=== PATIENT | female | born 1955 | race Caucasian/White ===

== ENCOUNTER 2017-12-01 14:34 | Observation (INO) ==
--- NOTE | 2017-12-01 14:42 | Emergency Department Note ---
Disposition Clinical Impression: COPD exacerbation, Acute renal insufficiency, Hypokalemia Disposition: Admitted As Inpatient Condition: Fair Time of Disposition: 21:38 General Adult HPI - General Chief complaint: ED Shortness of Breath/Dyspnea Stated complaint: FRANCESCO, congestion,cough Time Seen by Provider: 12/01/17 14:40 Source: patient Limitations: no limitations Nursing Notes Reviewed: Yes Vital Signs Reviewed: Yes - History of Present Illness HPI Narrative: 62-year-old female presents emergency Department with concern for shortness of breath, cough, congestion, fever. Patient states that she was recently seen and given azithromycin. States that things do not get better. Was diagnosed with pneumonia clinically yesterday. Started on doxycycline. Patient coming because she is not getting any better. 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 Reports long history of smoking. Patient does report having some left-sided pleuritic type chest pain. Pain Scale: 0 - Related Data Home Medications Medication Instructions Recorded Confirmed Acetaminophen with Codeine 1 tab PO Q8H PRN 12/01/17 12/01/17 [Acetaminophen-Cod #3 Tablet] Acetylcysteine 600 mg PO BIDWM 12/01/17 12/01/17 [A-Zhizan-c-Cysteine] Amantadine [Symmetrel] 200 mg PO HS 12/01/17 12/01/17 Aspirin Enteric Coated [Aspirin EC] 81 mg PO DAILY 12/01/17 12/01/17 Atorvastatin [Lipitor] 40 mg PO HS 12/01/17 12/01/17 Cholecalciferol (D-3) [Vitamin D] 1,000 unit PO DAILY 12/01/17 12/01/17 DULoxetine [Cymbalta] 30 mg PO DAILY 12/01/17 12/01/17 Doxycycline Hyclate [Doxycycline 100 mg PO BID 12/01/17 12/01/17 Hyclate] Galantamine HBr [Razadyne ER] 8 mg PO DAILY 12/01/17 12/01/17 Melatonin [Melatin] 3 mg PO HS 12/01/17 12/01/17 Triamterene/HCTZ 37.5/25mg 1 tab PO DAILY 12/01/17 12/01/17 [Dyazide] Allergies Allergy/AdvReac Type Severity Reaction Status Date / Time No Known Allergies Allergy Verified 12/01/17 16:21 All systems ED: reviewed and negative except as stated. Review of Systems: As Per HPI Constitutional: Reports: fever Cardiovascular: Reports: chest pain Respiratory: Reports: cough, dyspnea, sputum production. Denies: wheezes, hemoptysis Gastrointestinal: Denies: abdominal pain, nausea, vomiting Genitourinary: Denies: urgency, dysuria, frequency Musculoskeletal: Denies: back pain Past Medical History - Past Medical History Medical history: Reports: other - Social History Smoking Status: Current every day smoker Smokeless Tobacco Status: No Alcohol use: Reports: none Drug use: Reports: none Physical Exam - General Limitations: no limitations General appearance: alert - Head Head exam: normocephalic - Eye Eye exam: Present: EOMI - ENT ENT exam: normal exam, normal oropharynx, mucous membranes moist - Neck Neck exam: Present: trachea midline - Chest Chest inspection: Present: normal inspection, symmetric chest wall rise - Respiratory Respiratory exam: Present: other (Appears uncomfortable when taking breaths. Coarse lung sounds throughout.) - Cardiovascular Cardiovascular exam: Present: regular rate, normal rhythm, normal heart sounds - Abdominal Exam Abdominal exam: Present: soft, Non-Tender. Absent: distention, guarding, rebound, rigidity - Extremities Exam Extremities exam: Present: normal capillary refill - Neurological Exam Neurological exam: Present: alert, oriented X3 - Psychiatric Psychiatric exam: Present: normal affect, normal mood - Skin Skin exam: Present: warm, dry, intact, normal color Course Vital Signs Temperature 97.8 F 12/01/17 14:36 Pulse Rate 97 12/01/17 14:36 Respiratory Rate 22 12/01/17 14:36 Blood Pressure 155/97 12/01/17 14:36 O2 Sat by Pulse Oximetry 98 12/01/17 14:36 Temperature 98.6 F 12/01/17 19:40 Pulse Rate 85 12/01/17 19:40 Respiratory Rate 20 12/01/17 19:54 Blood Pressure 122/75 12/01/17 19:40 O2 Sat by Pulse Oximetry 99 12/01/17 19:54 Oxygen Delivery Oxygen Delivery Room Air Medical Decision Making - MDM Narrative Medical decision making narrative: 62-year-old female presents emergency department with concern for shortness of breath, cough, congestion, fever, and the setting of extensive smoking history. Patient is also having pleuritic chest pain. Patient currently hemodynamically stable, but does appear to be uncomfortable physical exam. We will obtain chest x-ray, EKG, troponin, BNP, BMP, CBC, d-dimer chest x-ray, give 125 Solu-Medrol IV, 1 L normal saline, 3 DuoNeb's. Patient has leukocytosis at 12.6. This kid be due to stress demargination as patient has been on steroids. EKG did not reveal any ischemic ST changes. Troponin is negative. D-dimer is within normal limits. 3 DuoNeb's help the patient. She stated that she was aerating better. Patient had a potassium of 2.6. Patient also has mild acute renal insufficiency with a creatinine of 1.29. Only 40 mEq was provided at this time. Magnesium was pending at time of admission. Patient has failed outpatient management as her symptoms that began worse. I think she needs to being in a different environment for the short-term to help alleviate her symptoms. Patient agrees to plan. Hemodynamically stable and not in any acute distress at time of admission to the hospitalist. Did not prescribe any antibiotics at this time as patient has no signs of pneumonia on chest x-ray. She is currently taking doxycycline by mouth. Chest X-Ray 12/01/17 14:52 IMPRESSION: Normal appearing chest with old granulomatous disease. No acute abnormality. D/ / Edgar Whitaker MD / Edgar Whitaker MD Interpreting Provider: Edgar Whitaker MD Vital Signs Temperature 97.8 F 12/01/17 14:36 Pulse Rate 97 12/01/17 14:36 Respiratory Rate 22 12/01/17 14:36 Blood Pressure 155/97 12/01/17 14:36 O2 Sat by Pulse Oximetry 98 12/01/17 14:36 Temperature 98.6 F 12/01/17 19:40 Pulse Rate 85 12/01/17 19:40 Respiratory Rate 20 12/01/17 19:54 Blood Pressure 122/75 12/01/17 19:40 O2 Sat by Pulse Oximetry 99 12/01/17 19:54 Oxygen Delivery Oxygen Delivery Room Air - Lab Data Result diagrams: 12/01/17 14:59 12/01/17 14:59 Lab Results 12/01/17 12/01/17 12/01/17 Range/Units 14:59 14:59 14:59 WBC 12.5 H (4.3-11.1) K/mcL RBC 5.42 H (3.82-4.97) M/mcL Hgb 15.7 H (11.5-15.4) g/dL Hct 46.1 H (35.3-44.9) % MCV 85.1 (83.0-100.0) fL MCH 29.0 (28.0-33.3) pg MCHC 34.1 (31.6-35.5) g/dL RDW 13.3 (11.5-14.5) % Plt Count 323 (140-400) K/mcL MPV 9.6 (9.4-12.4) fL Immature Gran % 1.4 (0-4) % Seg Neutrophils % 61.6 % Lymphocytes % 30.4 % Monocytes % 4.9 % Eosinophils % 1.4 % Basophils % 0.3 % Neutrophils # 7.7 (1.6-8.9) K/mcL Lymphocytes # 3.8 (0.6-4.6) K/mcL Monocytes # 0.6 (0.0-1.3) K/mcL Eosinophils # 0.2 (0.0-0.6) K/mcL Basophils # 0.0 (0.0-0.2) K/mcL D-Dimer < 215 (0-500) ng/mLFEU Sodium 137 (136-145) mEq/L Potassium 2.6 L (3.5-5.1) mEq/L Chloride 102 (98-107) mEq/L Carbon Dioxide 26 (23-29) mEq/L BUN 23 (8-23) mg/dL Creatinine 1.29 H (0.60-1.20) mg/dL Est GFR ( Amer) 51 L (> 60) Est GFR (Non-Af Amer) 42 L (> 60) BUN/Creatinine Ratio 18 (6-26) Glucose 157 H (70-105) mg/dL Calculated Osmolality 291 (280-300) Calcium 9.4 (8.6-10.3) mg/dL Magnesium 1.7 (1.6-2.6) mg/dL Troponin I < 0.03 (< 0.04) ng/mL B-Natriuretic Peptide (Less than 100) pg/mL 12/01/17 Range/Units 14:59 WBC (4.3-11.1) K/mcL RBC (3.82-4.97) M/mcL Hgb (11.5-15.4) g/dL Hct (35.3-44.9) % MCV (83.0-100.0) fL MCH (28.0-33.3) pg MCHC (31.6-35.5) g/dL RDW (11.5-14.5) % Plt Count (140-400) K/mcL MPV (9.4-12.4) fL Immature Gran % (0-4) % Seg Neutrophils % % Lymphocytes % % Monocytes % % Eosinophils % % Basophils % % Neutrophils # (1.6-8.9) K/mcL Lymphocytes # (0.6-4.6) K/mcL Monocytes # (0.0-1.3) K/mcL Eosinophils # (0.0-0.6) K/mcL Basophils # (0.0-0.2) K/mcL D-Dimer (0-500) ng/mLFEU Sodium (136-145) mEq/L Potassium (3.5-5.1) mEq/L Chloride (98-107) mEq/L Carbon Dioxide (23-29) mEq/L BUN (8-23) mg/dL Creatinine (0.60-1.20) mg/dL Est GFR ( Amer) (> 60) Est GFR (Non-Af Amer) (> 60) BUN/Creatinine Ratio (6-26) Glucose (70-105) mg/dL Calculated Osmolality (280-300) Calcium (8.6-10.3) mg/dL Magnesium (1.6-2.6) mg/dL Troponin I (< 0.04) ng/mL B-Natriuretic Peptide 13 (Less than 100) pg/mL - EKG Data EKG #1 EKG attestation: Yes I reviewed and interpreted this EKG. EKG results narrative: 14:55 Ventricular rate 71 bpm, [place] interval 167 ms, QRS duration 81 ms, QT 357 ms, QTC 379 segs, left axis deviation. Sinus rhythm with a ventricular rate of 71 bpm. No evidence of any ischemic ST changes.
[2017-12-01] MEDS ORDERED: Ipratropium/Albuterol Neb 3 ML IH ONE (14:50)
[2017-12-01] MEDS ORDERED: 0.9 % Sodium Chloride 1,000 ML IVC ONE (14:52)
[2017-12-01] MEDS ORDERED: methylPREDNISolone 125 MG/2 ML VIAL ONE (14:54)
[2017-12-01] MEDS ORDERED: 0.9 % Sodium Chloride 1,000 ML ONE (14:54)
[2017-12-01] MEDS: methylPREDNISolone 125 MG/2 ML VIAL IVP ONE ×2 (14:57→14:58)
[2017-12-01] MEDS ORDERED: Benzonatate 100 MG CAPSULE PO STA (15:03)
[2017-12-01] MEDS ORDERED: Loratadine 10 MG TABLET PO STA (15:03)
[2017-12-01 15:10] LABS: Basophils % 0.3 %; Eosinophils # 0.2 K/mcL (0.0-0.6); Eosinophils % 1.4 %; Hematocrit 46.1 % (35.3-44.9); Hemoglobin 15.7 g/dL (11.5-15.4); Immature Granulocytes % 1.4 % (0-4); Lymphocytes # 3.8 K/mcL (0.6-4.6); Lymphocytes % 30.4 %; Mean Corpuscular HGB Conc 34.1 g/dL (31.6-35.5); Mean Corpuscular Volume 85.1 fL (83.0-100.0); Mean Platelet Volume 9.6 fL (9.4-12.4); Monocytes # 0.6 K/mcL (0.0-1.3); Monocytes % 4.9 %; Neutrophils # 7.7 K/mcL (1.6-8.9); Platelet Count 323 K/mcL (140-400); Red Blood Count 5.42 M/mcL (3.82-4.97); Red Cell Distribution Width 13.3 % (11.5-14.5); Segmented Neutrophils % 61.6 %
[2017-12-01] MEDS ORDERED: Ondansetron 4 MG/2 ML VIAL IVP ONE (15:27)
[2017-12-01 15:38] LABS: Troponin I < 0.03 ng/mL (< 0.04)
[2017-12-01 15:40] LABS: BUN/Creatinine Ratio 18 (6-26); Blood Urea Nitrogen 23 mg/dL (8-23); Calcium 9.4 mg/dL (8.6-10.3); Carbon Dioxide 26 mEq/L (23-29); Chloride 102 mEq/L (98-107); Glucose 157 mg/dL (70-105); Osmolality,Calculated 291 (280-300); Potassium 2.6 mEq/L (3.5-5.1); Sodium 137 mEq/L (136-145); eGFR For Non-African Americans 42 (> 60)
--- NOTE | 2017-12-01 15:52 | Emergency Department Note ---
Disposition Clinical Impression: Acute renal insufficiency, Hypokalemia, COPD exacerbation Disposition: Admitted As Inpatient Condition: Good Time of Disposition: 17:02 General Adult HPI - General Chief complaint: ED Shortness of Breath/Dyspnea Stated complaint: FRANCESCO, congestion,cough Time Seen by Provider: 12/01/17 14:40 Source: patient Limitations: no limitations - History of Present Illness Pain Scale: 0 - Related Data Home Medications Medication Instructions Recorded Confirmed Acetaminophen with Codeine 1 tab PO Q8H PRN 12/01/17 12/01/17 [Acetaminophen-Cod #3 Tablet] Acetylcysteine 600 mg PO BIDWM 12/01/17 12/01/17 [U-Nfrlmm-q-Cysteine] Amantadine [Symmetrel] 200 mg PO HS 12/01/17 12/01/17 Aspirin Enteric Coated [Aspirin EC] 81 mg PO DAILY 12/01/17 12/01/17 Atorvastatin [Lipitor] 40 mg PO HS 12/01/17 12/01/17 Cholecalciferol (D-3) [Vitamin D] 1,000 unit PO DAILY 12/01/17 12/01/17 DULoxetine [Cymbalta] 30 mg PO DAILY 12/01/17 12/01/17 Doxycycline Hyclate 100 mg PO BID 12/01/17 12/01/17 Galantamine HBr [Razadyne ER] 8 mg PO DAILY 12/01/17 12/01/17 Melatonin [Melatin] 3 mg PO HS 12/01/17 12/01/17 Triamterene/HCTZ 37.5/25mg 1 tab PO DAILY 12/01/17 12/01/17 [Dyazide] Previous Rx's Medication Instructions Recorded Albuterol Neb [AccuNeb] 0.63 mg IH Q4H PRN #25 inhsol 12/03/17 Albuterol Sulfate [Albuterol 8.5 gm IH Q4H PRN #1 puff 12/03/17 Inhaler] Benzonatate [Tessalon] 200 mg PO Q8H PRN #15 capsule 12/03/17 Budesonide/Formoterol 160/4.5 2 puff IH BIDR #1 inhaler 12/03/17 [Symbicort 160/4.5] Potassium Chloride 20 meq PO DAILY #15 tab.er.prt 08/02/18 predniSONE [PredniSONE] 40 mg PO DAILY #20 tablet 12/03/17 Allergies Allergy/AdvReac Type Severity Reaction Status Date / Time No Known Allergies Allergy Verified 12/01/17 16:21 Constitutional: Reports: fever Cardiovascular: Reports: chest pain Respiratory: Reports: cough, dyspnea, sputum production. Denies: wheezes, hemoptysis Gastrointestinal: Denies: abdominal pain, nausea, vomiting Genitourinary: Denies: urgency, dysuria, frequency Musculoskeletal: Denies: back pain Past Medical History - Past Medical History Medical history: Reports: other - Social History Smoking Status: Current every day smoker Smokeless Tobacco Status: No Alcohol use: Reports: none Drug use: Reports: none Physical Exam - General Limitations: no limitations General appearance: alert Course Vital Signs Temperature 97.8 F 12/01/17 14:36 Pulse Rate 97 12/01/17 14:36 Respiratory Rate 22 12/01/17 14:36 Blood Pressure 155/97 12/01/17 14:36 O2 Sat by Pulse Oximetry 98 12/01/17 14:36 Temperature 97.4 F L 12/03/17 11:11 Pulse Rate 71 12/03/17 11:11 Respiratory Rate 17 12/03/17 11:11 Blood Pressure 160/85 12/03/17 11:11 O2 Sat by Pulse Oximetry 97 12/03/17 11:11 Oxygen Delivery Oxygen Delivery Room Air Medical Decision Making - Lab Data Result diagrams: 12/03/17 04:41 12/03/17 04:41 Lab Results 12/01/17 12/01/17 12/01/17 Range/Units 14:59 14:59 14:59 WBC 12.5 H (4.3-11.1) K/mcL RBC 5.42 H (3.82-4.97) M/mcL Hgb 15.7 H (11.5-15.4) g/dL Hct 46.1 H (35.3-44.9) % MCV 85.1 (83.0-100.0) fL MCH 29.0 (28.0-33.3) pg MCHC 34.1 (31.6-35.5) g/dL RDW 13.3 (11.5-14.5) % Plt Count 323 (140-400) K/mcL MPV 9.6 (9.4-12.4) fL Immature Gran % 1.4 (0-4) % Seg Neutrophils % 61.6 % Lymphocytes % 30.4 % Monocytes % 4.9 % Eosinophils % 1.4 % Basophils % 0.3 % Neutrophils # 7.7 (1.6-8.9) K/mcL Lymphocytes # 3.8 (0.6-4.6) K/mcL Monocytes # 0.6 (0.0-1.3) K/mcL Eosinophils # 0.2 (0.0-0.6) K/mcL Basophils # 0.0 (0.0-0.2) K/mcL D-Dimer < 215 (0-500) ng/mLFEU Sodium 137 (136-145) mEq/L Potassium 2.6 L (3.5-5.1) mEq/L Chloride 102 (98-107) mEq/L Carbon Dioxide 26 (23-29) mEq/L BUN 23 (8-23) mg/dL Creatinine 1.29 H (0.60-1.20) mg/dL Est GFR ( Amer) 51 L (> 60) Est GFR (Non-Af Amer) 42 L (> 60) BUN/Creatinine Ratio 18 (6-26) Glucose 157 H (70-105) mg/dL Calculated Osmolality 291 (280-300) Calcium 9.4 (8.6-10.3) mg/dL Magnesium 1.7 (1.6-2.6) mg/dL Troponin I < 0.03 (< 0.04) ng/mL B-Natriuretic Peptide (Less than 100) pg/mL 12/01/17 Range/Units 14:59 WBC (4.3-11.1) K/mcL RBC (3.82-4.97) M/mcL Hgb (11.5-15.4) g/dL Hct (35.3-44.9) % MCV (83.0-100.0) fL MCH (28.0-33.3) pg MCHC (31.6-35.5) g/dL RDW (11.5-14.5) % Plt Count (140-400) K/mcL MPV (9.4-12.4) fL Immature Gran % (0-4) % Seg Neutrophils % % Lymphocytes % % Monocytes % % Eosinophils % % Basophils % % Neutrophils # (1.6-8.9) K/mcL Lymphocytes # (0.6-4.6) K/mcL Monocytes # (0.0-1.3) K/mcL Eosinophils # (0.0-0.6) K/mcL Basophils # (0.0-0.2) K/mcL D-Dimer (0-500) ng/mLFEU Sodium (136-145) mEq/L Potassium (3.5-5.1) mEq/L Chloride (98-107) mEq/L Carbon Dioxide (23-29) mEq/L BUN (8-23) mg/dL Creatinine (0.60-1.20) mg/dL Est GFR ( Amer) (> 60) Est GFR (Non-Af Amer) (> 60) BUN/Creatinine Ratio (6-26) Glucose (70-105) mg/dL Calculated Osmolality (280-300) Calcium (8.6-10.3) mg/dL Magnesium (1.6-2.6) mg/dL Troponin I (< 0.04) ng/mL B-Natriuretic Peptide 13 (Less than 100) pg/mL Attestation Statement - Attestation Attestation: I examined this patient and my medical decision-making was reviewed with the Resident Physician. I agree with the documented findings, disposition and treatment plan as described except to the extent set forth below. 62 year old caleb presents to the ED with complaints of difficulty in breathing and is a long time smoker and juan c has COPD and has had a worsening bronchitic cough and was reently diagnosed with pneuamonia and treated with doxycycline for therapy althouhg she is not improving. WE will contineu with duonebs and steroids and re-evlaute. If she becomes worse than we will admit to medicine although if she is better and can ambulate and is back to baseline we will consider discharge home
[2017-12-01 16:51] LABS: Magnesium 1.7 mg/dL (1.6-2.6)
[2017-12-01] MEDS ORDERED: Naloxone 0.4 MG/ML INJ IVP PRN (19:30)
[2017-12-01] MEDS ORDERED: 0.9 % Sodium Chloride w KCl 20 MEQ/1,000 ML MLS IVC SCH (19:30)
[2017-12-01] MEDS: Budesonide/Formoterol 160/4.5 MDI IH SCH (19:52)
[2017-12-01] MEDS: Ipratropium/Albuterol Neb 3 ML IH SCH ×2 (20:13→21:53)
[2017-12-01] MEDS: Benzonatate 100 MG CAPSULE PO SCH (20:51)
[2017-12-01] MEDS: Doxycycline 100 MG CAPSULE PO SCH (20:51)
--- NOTE | 2017-12-01 21:39 | Internal Med History&Physical ---
Date of Encounter: 12/01/17 Time of Encounter: 21:00 Internal Medicine - H&P: HPI Admitted From: Home Plans for Post Hospital Care: Home History of present illness: Ms. Yanes is a 62 year old female. This patient has been developing progressing difficulty breathing with coughing and some wheezing for the last few weeks. It was likely triggered by remodeling of her old house. Subsequently, she was exposed to dusts and molds. It was about 9 days ago when she was put on Zithromax by an urgent care physician. Then, she was switched to doxycycline by her PCP yesterday. She was also prescribed some inhaler. She was not taking steroids recently. She does have exacerbation of COPD at times. [place] usually [place]. She does smoke average one pack of cigarettes per day; started as a teenager. Review of systems: All 14 organ systems were reviewed by me with the patient. Positive and pertinent negative findings are listed above. The rest of organ systems is negative. Past Med Surg Social Fam HX - Past Medical History Medical history: COPD, hyperlipidemia, hypertension, other Psychiatric history: anxiety, depression - Social History Smoking Status: Current every day smoker Smokeless Tobacco Status: No Alcohol use: none Drug use: none Internal Medicine - H&P: Meds Acetaminophen with Codeine [Acetaminophen-Cod #3 Tablet] 1 tab PO Q8H PRN [History] Acetylcysteine [S-Fgjixg-b-Cysteine] 600 mg PO BIDWM 12/01/17 [History] Amantadine [Symmetrel] 200 mg PO HS 12/01/17 [History] Aspirin Enteric Coated [Aspirin EC] 81 mg PO DAILY 12/01/17 [History] Atorvastatin [Lipitor] 40 mg PO HS 12/01/17 [History] Cholecalciferol (D-3) [Vitamin D] 1,000 unit PO DAILY 12/01/17 [History] DULoxetine [Cymbalta] 30 mg PO DAILY 12/01/17 [History] Doxycycline Hyclate [Doxycycline Hyclate] 100 mg PO BID 12/01/17 [History] Galantamine HBr [Razadyne ER] 8 mg PO DAILY 12/01/17 [History] Melatonin [Melatin] 3 mg PO HS 12/01/17 [History] Triamterene/HCTZ 37.5/25mg [Dyazide] 1 tab PO DAILY 12/01/17 [History] 3 Allergy/AdvReac Type Severity Reaction Status Date / Time No Known Allergies Allergy Verified 12/01/17 16:21 All Systems PM: A 10-system review of systems was performed and is negative for pertinent findings except as documented above in the HPI. - Constitutional Constitutional: no chills, no fever(s), no night sweats - EENT Eyes: no change in vision, no discharge, no pain, no photophobia Ears: no ear discharge, no ear pain, no tinnitus Nose, mouth and throat: no dysphagia, no nasal discharge, no neck pain, no sore throat - Cardiovascular Cardiovascular ROS IM: no chest pain, no diaphoresis, no dyspnea, no lightheadedness, no palpitations, no syncope - Respiratory Respiratory: no cough, no dyspnea, no wheezing, no excessive phlegm production - Gastrointestinal Gastrointestinal: no abdominal pain, no diarrhea, no hematemesis, no hematochezia, no melena, no nausea, no vomiting - Genitourinary Genitourinary: difficulty voiding, no change in urinary stream, no dysuria, no flank pain, no hematuria - Musculoskeletal Musculoskeletal ROS IM: no numbness, no tingling - Integumentary Integumentary IM: no rash, no unusual bruising - Neurological Neurological ROS: no confusion, no convulsions, no focal weakness, no numbness, no tingling, no tremor(s) - Hematologic/Lymphatic Hematologic/Lymphatic: no easy bruising - Constitutional Vitals: Temp Pulse Resp BP Pulse Ox 98.6 F 85 20 122/75 99 12/01/17 19:40 12/01/17 19:40 12/01/17 19:54 12/01/17 19:40 12/01/17 19:54 - Other Additional findings: Skin: Free of rash and discoloration. Eyes: Sclera is white. There is no discharge from eyes. ENMT: Oral/pharyngeal mucosa is normal in appearance. There is no discharge from nose or ears. Respiratory: Normal breath sounds with no crackles and wheezes bilaterally. CV: Heart is regular with no gallop or murmur. GI: Abdomen is flat and soft with no palpable mass or visceromegaly. : There is no tenderness in patient's flanks bilaterally. There is mild tenderness in suprapubic area. His post voiding residual is about 500 cc. Neuro exam: He has good strength in upper and lower extremities. He has normal eye movements. Psychiatric: He has normal affect. His thought process is appropriate to the situation. Internal Med - H&P Results - Labs CBC & Chem 7: 12/01/17 14:59 12/01/17 14:59 - Assessment and plan (1) COPD with exacerbation Current Visit: Yes Status: Acute Assessment and plan: She would benefit from steroids. She received 125 mg of IV Solu-Medrol in the emergency department. We will give her prednisone at 40 mg by mouth every morning. We will give her Symbicort inhalations. Will give her every 6 hours nebulizer treatment with TNF. We will continue doxycycline (started yesterday) . The patient will be not smoking cigarettes in the hospital. I advised her to quit doing that after the discharge. (2) Acute hypokalemia Current Visit: Yes Status: Acute Assessment and plan: One can see very low potassium level in the emergency department. It is likely secondary to nebulizer treatments and Dyazide, she was taking at home. She received 40 mEq of potassium chloride in the ER. Will be repeated throughout the evening. We will check her potassium level and magnesium level in the morning. (3) HTN (hypertension) Current Visit: Yes Status: Acute Assessment and plan: I feel that she does not need any antihypertensives at this time. We may need to try something different than Dyazide later into this hospitalization. Qualifiers: Hypertension type: essential hypertension Qualified Code(s): I10 - Essential (primary) hypertension (4) HLD (hyperlipidemia) Current Visit: Yes Status: Acute Assessment and plan: We will continue Lipitor. Qualifiers: Hyperlipidemia type: unspecified Qualified Code(s): E78.5 - Hyperlipidemia , unspecified - Time Spent With Patient Total time spent is greater than 50% in coordination of care (as documented) at patient's floor/unit and/or counseling patient: Greater than 35 minutes (40 minutes)
[2017-12-01] MEDS: Melatonin 3 MG TABLET PO SCH (22:05)
[2017-12-02] MEDS: Ipratropium/Albuterol Neb 3 ML IH SCH ×4 (04:04→22:28)
[2017-12-02] MEDS: Benzonatate 100 MG CAPSULE PO SCH ×3 (04:40→20:54)
[2017-12-02] MEDS: *HR* Heparin 5,000 UNIT/ML VIAL SQ SCH ×2 (04:40→16:18)
[2017-12-02 06:15] LABS: Hematocrit 39.8 % (35.3-44.9); Hemoglobin 13.4 g/dL (11.5-15.4); Mean Corpuscular HGB Conc 33.7 g/dL (31.6-35.5); Mean Corpuscular Hemoglobin 29.1 pg (28.0-33.3); Mean Corpuscular Volume 86.5 fL (83.0-100.0); Mean Platelet Volume 9.8 fL (9.4-12.4); Platelet Count 277 K/mcL (140-400); Red Cell Distribution Width 13.5 % (11.5-14.5)
[2017-12-02 06:20] LABS: Potassium 3.1 mEq/L (3.5-5.1)
[2017-12-02] MEDS: Doxycycline 100 MG CAPSULE PO SCH ×2 (07:43→20:53)
[2017-12-02] MEDS: Nicotine 21 MG PATCH.TD24 TD SCH ×2 (07:43→16:18)
[2017-12-02] MEDS: predniSONE 20 MG TABLET PO SCH (07:43)
[2017-12-02] MEDS: Budesonide/Formoterol 160/4.5 MDI IH SCH ×2 (10:28→22:28)
[2017-12-02 11:36] LABS: Lymphocytes # 0.5 K/mcL (0.6-4.6); Neutrophils # 26.2 K/mcL (1.6-8.9)
[2017-12-02 11:37] LABS: Platelet Estimate Normal (Normal)
--- NOTE | 2017-12-02 14:22 | Internal Med Progress Note ---
Hospitalist Progress Note - Encounter Date of Encounter: 12/02/17 Time of Encounter: 14:20 - Subjective Interval History: 62 F with COPD, HTN and post-concussion syndrome, tobacco abuse who is admitted to observation and being managed for COPDE She reports her breathing has improved She does have LLL rhonchi, will repeat CXR-2 views She is not hypoxic and has not been requiring O2 - Exam Vitals: Temp Pulse Resp BP Pulse Ox 97.7 F 87 17 127/69 97 12/02/17 10:54 12/02/17 10:54 12/02/17 10:54 12/02/17 10:54 12/02/17 10:54 Exam: VSS Gen: Speaks full sentences, not in distress HEENT: Moist roal mucosa, not pale, anciteric Chest: LLL rhonchi Heart: S1, S2 only, no m/g/r Abdomen: Soft, not tender, no palpably enlarged organs Skin: No rash Psych: Normal affect Neuro: AAOX3, no focal deficits Extremities: No pedal edema - Assessment and Plan (1) Acute hypokalemia Current Visit: Yes Status: Acute Assessment and Plan: K improved to 3.1 from 2.6, likley due to diuretics, neb treatments Replaced po Continue to monitor Check Mag (2) COPD with exacerbation Current Visit: Yes Status: Acute Assessment and Plan: continue current care repeat CXR continue doxycycline for now (3) HLD (hyperlipidemia) Current Visit: Yes Status: Chronic Assessment and Plan: continue home meds (4) HTN (hypertension) Current Visit: Yes Status: Chronic Assessment and Plan: continue home meds (5) Polycythemia Current Visit: Yes Status: Acute Assessment and Plan: secondary to smoking Hb improved to 13.4 from 15.7 Likely also component of dehydration Continue to monitor (6) Leukocytosis Current Visit: Yes Status: Acute Assessment and Plan: likely due to steroids, patient is afebrile, no other signs of sepsis Continue to monitor - Time Spent with Patient Total time spent is greater than 50% in coordination of care (as documented) at patient's floor/unit and/or counseling patient: Plan of Care Discussed with: patient Internal Medicine: Result - Labs CBC & Chem 7: 12/02/17 05:31 12/02/17 05:31 Labs: Short CBC 08/01/18 Range/Units 05:31 WBC 26.7 H D (4.3-11.1) K/mcL Hgb 13.4 D (11.5-15.4) g/dL Hct 39.8 (35.3-44.9) % Plt Count 277 (140-400) K/mcL Neutrophils # 26.2 H (1.6-8.9) K/mcL BMP 12/02/17 05:31 Sodium 139 Potassium 3.1 L Chloride 111 H Carbon Dioxide 21 L BUN 25 H Creatinine 1.13 Glucose 311 H Calcium 9.0 - ABG Interpretation ABG results: PT/INR, D-dimer D-Dimer < 215 ng/mLFEU (0-500) 12/01/17 14:59 Consult Discharge Plan - Plan Referrals: Kimberly Rogers, [facility] [Primary Care Provider] - (3) HLD (hyperlipidemia) Qualifiers: Hyperlipidemia type: unspecified Qualified Code(s): E78.5 - Hyperlipidemia, unspecified (4) HTN (hypertension) Qualifiers: Hypertension type: essential hypertension Qualified Code(s): I10 - Essential (primary) hypertension (6) Leukocytosis Qualifiers: Leukocytosis type: unspecified Qualified Code(s): D72.829 - Elevated white blood cell count, unspecified
--- NOTE | 2017-12-02 20:22 | Electrocardiograph Report ---
[place] [id number] Test Date: 2017-12-01 Pat Name: Ana Yanes Department: [id number] Room: 2A41 Gender: F Body Hanger: TATY : 1955 Requested By: Stewart Martinez Order Number: [id number] Reading MD: Zonia Carrillo Measurements Intervals [place] Rate: 71 P: 25 MN: 167 QRS: -37 QRSD: 81 T: 40 QT: 357 QTc: 379 Interpretive Statements SINUS RHYTHM LEFT AXIS DEVIATION [QRS AXIS < -30] LOW QRS VOLTAGE IN PRECORDIAL LEADS [QRS DEFLECTION < 1.0 mV IN CHEST LEADS] MODERATE VOLTAGE CRITERIA FOR LVH, CONSIDER NORMAL VARIANT [MEETS CRITERIA IN ONE OF: R(aVL), S(V1), R(V5), R(V5/V6)+S(V1)] Electronically Signed On 12-02-2017 17:04:11 EDT by Zonia Carrillo
[2017-12-02] MEDS: Melatonin 3 MG TABLET PO SCH (20:53)
[2017-12-03] MEDS: Ipratropium/Albuterol Neb 3 ML IH SCH ×2 (04:18→10:37)
[2017-12-03 05:34] LABS: Basophils % 0.2 %
[2017-12-03 05:36] LABS: Hematocrit 36.6 % (35.3-44.9); Hemoglobin 11.9 g/dL (11.5-15.4); Immature Granulocytes % 1.1 % (0-4); Lymphocytes # 2.8 K/mcL (0.6-4.6); Lymphocytes % 10.5 %; Mean Corpuscular HGB Conc 32.5 g/dL (31.6-35.5); Mean Corpuscular Hemoglobin 28.3 pg (28.0-33.3); Mean Corpuscular Volume 86.9 fL (83.0-100.0); Monocytes % 3.7 %; Neutrophils # 22.2 K/mcL (1.6-8.9); Platelet Count 262 K/mcL (140-400); Red Blood Count 4.21 M/mcL (3.82-4.97); Red Cell Distribution Width 14.2 % (11.5-14.5); Segmented Neutrophils % 84.5 %
[2017-12-03] MEDS: *HR* Heparin 5,000 UNIT/ML VIAL SQ SCH (05:50)
[2017-12-03] MEDS: Benzonatate 100 MG CAPSULE PO SCH (05:50)
[2017-12-03 05:53] LABS: BUN/Creatinine Ratio 18 (6-26); Blood Urea Nitrogen 18 mg/dL (8-23); Calcium 9.1 mg/dL (8.6-10.3); Carbon Dioxide 22 mEq/L (23-29); Chloride 111 mEq/L (98-107); Glucose 139 mg/dL (70-105); Osmolality,Calculated 300 (280-300); Potassium 3.4 mEq/L (3.5-5.1); Sodium 143 mEq/L (136-145); eGFR For Non-African Americans 55 (> 60)
[2017-12-03 06:04] LABS: Basophils # 0.1 K/mcL (0.0-0.2)
[2017-12-03 06:08] LABS: Platelet Estimate Normal (Normal); Toxic Granulation Present (Not Present)
[2017-12-03] MEDS: Nicotine 21 MG PATCH.TD24 TD SCH (08:54)
[2017-12-03] MEDS: predniSONE 20 MG TABLET PO SCH (08:55)
[2017-12-03] MEDS: Doxycycline 100 MG CAPSULE PO SCH (08:55)
--- NOTE | 2017-12-03 10:29 | Discharge Summary ---
- NOTES TO OUTPATIENT PROVIDER Notes to Outpatient Provider: Admitted for COPDE. 2 views CXR ruled out PNA. Discharged to continue doxy at home, with predisone taper, also discharged with nebulizer and nebs and MDI. PFT scheduled as outpatient. Follow-up with PCP. Date of Encounter: 12/03/17 Time of Encounter: 10:26 - Discharge Diagnosis (1) Acute hypokalemia Priority: Primary Status: Resolved (2) COPD with exacerbation Priority: Primary Status: Acute (3) HLD (hyperlipidemia) Priority: Secondary Status: Chronic Qualifiers: Hyperlipidemia type: unspecified Qualified Code(s): E78.5 - Hyperlipidemia , unspecified (4) HTN (hypertension) Priority: Secondary Status: Chronic Qualifiers: Hypertension type: essential hypertension Qualified Code(s): I10 - Essential (primary) hypertension (5) Polycythemia Priority: Primary Status: Resolved (6) Leukocytosis Priority: Primary Status: Acute Qualifiers: Leukocytosis type: unspecified Qualified Code(s): D72.829 - Elevated white blood cell count, unspecified Hospital course: Ms. Yanes is a 62 year old female with PMH of post-concussion syndrome, HTN, HLD, Tobacco abuse who presented with SOB and wheezing and was admitted to [facility] for management of COPD exacerbation Work up on admission also showed leukocytosis with left shift, 2 views CXR done twice was normal, with no infiltrates, she had dehydration and polycythemia on arrival. she also had hypokalemia which was replaced daily Leukocytosis persists although patient has made clinical improvement, she remained afebrile and no sources of infection were identified, it is likely due to steroids being used at home prior to admission She was managed with nebs, antibiotics, steroids, tessalon, K supplements She is seen and evaluated this a.m, she has no new complains, her breathing has improved remarkably and she is clinically stable and ambulatory She is discharged in stable clinical condition with prednisone taper, continue doxycycline, potassium 20meq daily till PCP review We also gave nebulizer and nebs script as well as scheduled a PFT as out-patient Patient counselled on tobacco cessation for 3 mins Verbalized understanding of plan of care Discharge discussed with: patient, family, nurse, case management Time spent discussing smoking cessation with patient: 3 to 10 minutes - Time Spent with Patient Total time spent providing and/or coordinating discharge services: Greater than 30 minutes - Discharge Medications Prescriptions: Benzonatate [Tessalon] 200 mg PO Q8H PRN #15 capsule PRN Reason: Cough Budesonide/Formoterol 160/4.5 [Symbicort 160/4.5] 2 puff IH BIDR #1 inhaler predniSONE [PredniSONE] 40 mg PO DAILY #20 tablet Home Medications: Acetaminophen with Codeine [Acetaminophen-Cod #3 Tablet] 1 tab PO Q8H PRN [History] Acetylcysteine [L-Ixxkuj-u-Cysteine] 600 mg PO BIDWM 12/01/17 [History] Amantadine [Symmetrel] 200 mg PO HS 12/01/17 [History] Aspirin Enteric Coated [Aspirin EC] 81 mg PO DAILY 12/01/17 [History] Atorvastatin [Lipitor] 40 mg PO HS 12/01/17 [History] Cholecalciferol (D-3) [Vitamin D] 1,000 unit PO DAILY 12/01/17 [History] DULoxetine [Cymbalta] 30 mg PO DAILY 12/01/17 [History] Doxycycline Hyclate 100 mg PO BID 12/01/17 [History] Galantamine HBr [Razadyne ER] 8 mg PO DAILY 12/01/17 [History] Melatonin [Melatin] 3 mg PO HS 12/01/17 [History] Triamterene/HCTZ 37.5/25mg [Dyazide] 1 tab PO DAILY 12/01/17 [History] Benzonatate [Tessalon] 200 mg PO Q8H PRN #15 capsule 12/03/17 [Rx] Budesonide/Formoterol 160/4.5 [Symbicort 160/4.5] 2 puff IH BIDR #1 inhaler 06/21 [Rx] predniSONE [PredniSONE] 40 mg PO DAILY #20 tablet 12/03/17 [Rx] Allergies/Adverse Reactions: 3 Allergy/AdvReac Type Severity Reaction Status Date / Time No Known Allergies Allergy Verified 12/01/17 16:21 Date of admission: 12/01/17 17:09 Primary care physician: Kimberly Rogers CNP Consults: 12/01/17 18:56 Consult to Nurse Navigator [CONS] Routine Comment: Discharging clinician: Kike Perez Anticipated date of discharge: 12/03/17 - Constitutional Vitals: Temp Pulse Resp BP Pulse Ox 97.5 F L 68 18 145/75 98 12/03/17 07:20 12/03/17 07:20 12/03/17 07:20 12/03/17 07:20 12/03/17 08:00 General appearance: Present: A&O X 3, pleasant, no acute distress - Head Head exam: Present: atraumatic, normocephalic - Eye Eye exam: Present: PERRL, conjuntiva pink, sclera anicteric Pupils: Present: PERRL - Neck Neck exam general surgery: Present: supple, trachea midline. Absent: lymphadenopathy - Respiratory Respiratory exam: Present: CTAB. Absent: accessory muscle use, rales, rhonchi, wheezes - Cardiovascular Cardiovascular exam: Present: RRR, +S1, +S2. Absent: diastolic murmur, gallop, rubs, systolic murmur - GI/Abdominal GI/Abdominal exam: Present: normal bowel sounds, soft, no peritoneal signs. Absent: distended, tenderness - Extremities Exam Extremities exam: Present: warm, radial pulses palpable and symmetrical. Absent : calf tenderness, cyanotic, pedal edema - Neurological Exam Neurological exam: Present: CN II-XII intact, oriented X3, no focal deficits. Absent: pronater drift, facial droop, speech deficit - Skin Skin exam: Present: dry, intact - Patient Status Disposition: Home, Self-Care Condition: Good Functional capacity at discharge: independent ambulation Overall status at discharge: patient is progressing back to baseline - Discharge Instructions Follow Up With: Kimberly Rogers TISSUE RECOVERY TECHNICIAN [Primary Care Provider] - - Diet and Activity Activity: resume usual activities as tolerated Diet: low salt diet
[2017-12-03] MEDS: Budesonide/Formoterol 160/4.5 MDI IH SCH (10:37)
[2017-12-03 11:14] VITALS: BP 160/85
== END 2017-12-03 11:30 | disposition home or self-care (01) ==
LOC: 2ANU 14:34 → EMEROO 14:34 → 2ANU 17:30 → SUATTDRO 21:35
PROVIDERS: ADMIT Internal Medicine; ATTEND Internal Medicine

== ENCOUNTER 2018-12-18 22:38 | Observation (INO) ==
[2018-12-18] MEDS ORDERED: 0.9 % Sodium Chloride 1,000 ML IVC ONE (23:03)
[2018-12-18 23:15] LABS: Hemoglobin 13.8 g/dL (11.5-15.4); Immature Granulocytes % 0.5 % (0-4); Lymphocytes % 21.8 %; Mean Corpuscular HGB Conc 31.4 g/dL (31.6-35.5); Mean Corpuscular Hemoglobin 27.3 pg (28.0-33.3); Mean Corpuscular Volume 87.1 fL (83.0-100.0); Mean Platelet Volume 9.3 fL (9.4-12.4); Platelet Count 338 K/mcL (140-400); Red Blood Count 5.05 M/mcL (3.82-4.97); Segmented Neutrophils % 71.4 %; White Blood Count 13.2 K/mcL (4.3-11.1)
[2018-12-18 23:16] LABS: Basophils % 0.3 %; Eosinophils # 0.1 K/mcL (0.0-0.6); Eosinophils % 0.6 %; Lymphocytes # 2.9 K/mcL (0.6-4.6); Monocytes # 0.7 K/mcL (0.0-1.3); Monocytes % 5.4 %; Neutrophils # 9.5 K/mcL (1.6-8.9)
[2018-12-18] MEDS ORDERED: Isovue-370 500 ML BOTTLE IVP ONE (23:30)
[2018-12-18 23:36] LABS: Alanine Aminotransferase 13 Units/L (7-52); Albumin 3.6 g/dL (3.5-5.7); Albumin/Globulin Ratio 1.2 (1.1-2.2); Alkaline Phosphatase 131 Units/L (34-104); Aspartate Amino Transferase 14 Units/L (13-39); BUN/Creatinine Ratio 14 (6-26); Bilirubin,Total 0.4 mg/dL (0.3-1.0); Blood Urea Nitrogen 19 mg/dL (8-23); Calcium 9.1 mg/dL (8.6-10.3); Carbon Dioxide 23 mEq/L (23-29); Chloride 105 mEq/L (98-107); Glucose 122 mg/dL (70-105); Osmolality,Calculated 292 (280-300); Potassium 3.9 mEq/L (3.5-5.1); Sodium 139 mEq/L (136-145); Total Protein 6.6 g/dL (6.4-8.9); Troponin I < 0.03 ng/mL (< 0.04); eGFR For African Americans 48 (> 60); eGFR For Non-African Americans 40 (> 60)
[2018-12-19] MEDS ORDERED: Azithromycin 500 MG in 0.9 % Sodium Chloride 250 ML IVPB ONE (00:41)
[2018-12-19] MEDS ORDERED: cefTRIAXone 1,000 MG in 0.9 % Sodium Chloride Mini Bag 100 ML IVPB ONE (00:41)
[2018-12-19] MEDS ORDERED: methylPREDNISolone 125 MG/2 ML VIAL IVP ONE (00:42)
[2018-12-19] MEDS ORDERED: Ipratropium/Albuterol Neb 3 ML IH ONE (00:42)
[2018-12-19] MEDS ORDERED: 0.9 % Sodium Chloride 1,000 ML IVC ONE (00:48)
[2018-12-19] MEDS ORDERED: methylPREDNISolone 125 MG/2 ML VIAL ONE (01:11)
[2018-12-19] MEDS ORDERED: Ondansetron 4 MG/2 ML VIAL IVP PRN (02:12)
[2018-12-19] MEDS ORDERED: Naloxone 0.4 MG/ML INJ IVP PRN (02:12)
[2018-12-19 03:13] LABS: Basophils % 0.3 %; Eosinophils % 0.3 %; Hematocrit 37.3 % (35.3-44.9); Immature Granulocytes % 0.5 % (0-4); Lymphocytes # 1.3 K/mcL (0.6-4.6); Lymphocytes % 11.1 %; Mean Corpuscular HGB Conc 30.8 g/dL (31.6-35.5); Mean Corpuscular Hemoglobin 27.1 pg (28.0-33.3); Mean Corpuscular Volume 87.8 fL (83.0-100.0); Monocytes # 0.3 K/mcL (0.0-1.3); Monocytes % 2.9 %; Neutrophils # 10.1 K/mcL (1.6-8.9); Platelet Count 284 K/mcL (140-400); Red Blood Count 4.25 M/mcL (3.82-4.97); Segmented Neutrophils % 84.9 %; White Blood Count 11.9 K/mcL (4.3-11.1)
[2018-12-19] MEDS: 0.9 % Sodium Chloride 1,000 ML IVC SCH ×2 (03:17→12:10)
[2018-12-19 03:25] LABS: Albumin 3.1 g/dL (3.5-5.7); Albumin/Globulin Ratio 1.2 (1.1-2.2); Bilirubin,Total 0.3 mg/dL (0.3-1.0); Calcium 7.9 mg/dL (8.6-10.3); Chol/HDL Ratio 4.2 (0-4.9); Globulin 2.5 g/dL (2.4-3.5); Magnesium 1.8 mg/dL (1.6-2.6); Phosphorous 2.9 mg/dL (2.7-4.5); Potassium 3.9 mEq/L (3.5-5.1); Total Protein 5.6 g/dL (6.4-8.9)
[2018-12-19 03:35] LABS: Hemoglobin 11.5 g/dL (11.5-15.4)
[2018-12-19] MEDS: Ipratropium/Albuterol Neb 3 ML IH SCH ×2 (04:13→10:16)
[2018-12-19 04:50] LABS: INR 1.1; Prothrombin Time 12.8 Seconds (9.4-12.1)
[2018-12-19 04:52] LABS: Activated Partial Thrombo Time 26.1 Seconds (26.0-36.0)
[2018-12-19] MEDS: MethylPREDNISolone 40 MG/ML VIAL IVP SCH ×2 (06:09→12:10)
[2018-12-19] MEDS ORDERED: cefTRIAXone 1,000 MG in Water for inj. (sterile) 10 ML IVP SCH (09:00)
[2018-12-19 11:29] VITALS: BP 105/65
[2018-12-19] MEDS ORDERED: Azithromycin 500 MG in 0.9 % Sodium Chloride 250 ML IVPB SCH (18:00)
== END 2018-12-19 14:50 | disposition home or self-care (01) ==
LOC: 2ANU 22:38 → EMEROOARM 22:38 → SUATTDRO 12-19 01:15 → 2ANU 12-19 02:15
PROVIDERS: ADMIT Internal Medicine Nephrology; ATTEND Family Medicine